=== PATIENT | male | born 1930 | race Caucasian/White ===

== ENCOUNTER 2017-01-06 08:53 | Observation (INO) | payer MEDICARE, OTHER ==
[~2017-01-06] VITALS: Ht 167.6 cm; Wt 91.0 kg
--- NOTE | ~2017-01-06 | ECH ---
Transthoracic Echocardiography Report (TTE) Demographics Patient Name JOHNY GUERRA Date of Study 01/06/2017 A Patient Number [id number] Visit Number [id number] Date of 1930 Room Number 413 Accession Number [id number] Gender Male Age 86 year(s) Referring Aung Perez MD Oncology Technician Marimar Gil [facility] Physician Physician Interpreting Susanna Tian Media Liaison Officer Physician Supervising Ordering Physician Nicole Perez MD, MD/[facility] Nurse Stress Email Campaign Specialist Conclusions Summary Technically fair exam. The estimated left ventricular ejection fraction is 50-55%. Diastolic assessment reveals Grade I diastolic dysfunction. The left atrium is moderately dilated by LA volume index measurement. Informed consent was obtained, bubble study was done, there is no evidence for a PFO or ASD. Aortic sclerosis without hemodynamically significant stenosis. There is trivial aortic regurgitation by color Doppler. Procedure Type of Study TTE procedure:Echo Complete SF. Procedure Date Date: 01/06/2017 Start: 03:44 PM Technical Quality: Fair due to poor acoustical window. Indications:Syncope, Hypertension and Cardiomegaly. Appropriate Use Criteria: 9 Height: 66 inches Weight: 187 pounds BSA: 1.94 m Rhythm: NSR HR: 60 bpm BP: 156/70 mmHg M-Mode/2D Measurements LV Diastolic Dimension: 5.04 cm LV Systolic Dimension: 4.22 cm LV Septum Diastolic: 1.04 cm LV PW Diastolic: 1.04 cm AO Root Dimension: 3.15 cm Cardiac Output: 2.97 l/min LA Dimension: 3.1 cm Cardiac Index: 1.53 l/min*m RV Diastolic Dimension: 3.57 cm LA volume index: 45 ml/m LVOT: 2.02 cm LVOT VTI: 15.47 cm RV Base: 3.4 cm LV Stroke volume: 49.55 ml RV Mid: 2 cm LV Stroke volume index: 25.54 ml/m TAPSE: 2.2 cm TDI-S': 12 cm/s Doppler Measurements AV Peak Velocity: 2 m/s MV Peak E-Wave: 0.45 m/s AV Peak Gradient: 16 mmHg MV Peak A-Wave: 0.66 m/s AV Mean Gradient: 10.57 mmHg MV E/A Ratio: 0.67 LVOT Peak Velocity: 0.64 m/s MV P1/2t: 123.4 msec AV Area (Continuity):0.89 cm MV Deceleration Time: 468.3 msec MV Area (PHT): 1.78 cm PV Peak Velocity: 0.77 m/s E' Septal Velocity: 0.1 m/s PV Peak Gradient: 2.39 mmHg E' Lateral Velocity: 0.06 m/s A' Lateral Velocity: 0.1 m/s RA Area: 14.45 cm Findings Left Ventricle Normal left ventricle size and function. Diastolic assessment reveals Grade I diastolic dysfunction. Right Ventricle Normal right ventricle structure and function. Left Atrium The left atrium is moderately dilated by LA volume index measurement. Informed consent was obtained, bubble study was done, there is no evidence for a PFO or ASD. Right Atrium Normal right atrial size. Mitral Valve Normal mitral valve structure and function. Trivial mitral regurgitation by color Doppler. Aortic Valve The aortic valve is moderately sclerotic. There is trivial aortic regurgitation by color Doppler. Tricuspid Valve Normal tricuspid valve structure and function. Trivial tricuspid regurgitation by color Doppler. Insufficient jet to calculate pulmonary pressures. Pulmonic Valve The pulmonic valve is not well visualized. Pericardial Effusion No evidence of pericardial effusion. Miscellaneous Visualized portions of the aortic root and ascending aorta appear normal in size. Pleural Effusion No evidence of pleural effusion. Contractility Score LV regional wall motion:(0-Non visualized 1-Normal 2-Hypokinesis 3-Akinesis 4-Dyskinesis 5-Aneurysm) Signature
[~2017-01-06 08:53] MED LIST: ALDACTONE DPS25 MG PO; ASPIRIN EC81 MG PO; AUGMENTIN XR1 GM PO; COUMADIN DPS3 MG PO; COUMADIN2.5 MG PO; DELTASONE DPS5 MG PO; DULERA 200/58.8 GM IH; FLOMAX DPS0.4 MG PO; GLUCAGON1 MG/ML SQ; GLUCOTROL DPS5 MG PO; GLUCOTROL5 MG PO; GLUTOSE 1537.5 GM PO; KENALOG 0.1% D454 GM TP; MAALOX DPS30 ML PO; MUCINEX DM ER1 EAC1 PO; NEURONTIN DPS300 MG PO; NEURONTIN300 MG PO; NORMAL SALINE FL5 ML IV; NOVOLIN R,100 UNITS/ SQ; OMEGA-3 DPS1000 MG PO; PEPCID DPS20 MG PO; RESTASIS1 EACH OU; ROCEPHIN DPS2 GM IV; SIMBRINZA 1%-0.28 ML OU; SURFAK DPS240 MG PO; SYNTHROID DP0.075 MG PO; TEARS NATURAL D15 ML OU; THERAPEUTIC MUL1 TAB PO; TYLENOL DPS325 MG PO; VESICARE5 MG PO; VITAMIN B-12500 MCG PO; VITAMIN B125000 MCG PO; XALATAN2.5 ML OU; ZOCOR DPS20 MG PO
--- NOTE | 2017-01-07 08:46 | ER ---
ADMIT: 01/06/2017 RM/LOC: 413 [facility] MR#: [id number] [address] [address] [place] [address] Emergency Room Report SEX: M AGE: 86 : 1930 DATE: 01/06/2017 This 86-year-old gentleman arrives from [facility]. He apparently was walking in the hallway when they found him down on the floor. They subsequently called the ambulance. Before the ambulance arrived, the fire crew arrived. They noted a pulse in the 30s and were unable to find a blood pressure. By the time the ambulance arrived, the patient was coming to, they did note he was incontinent of stool and urine. The said when they arrived he did have a pulse and his blood pressure was slowly coming up. He was transferred to the Emergency Department for further evaluation. The patient does suffer from dementia and is unable to provide accurate review of systems or history. He states he is feeling fine and would like to go back home. He has no complaints. PAST MEDICAL HISTORY: Hypertension, diabetes, coronary artery disease, and dementia. PHYSICAL EXAMINATION: GENERAL: Revealed an elderly gentleman, in no acute distress. He was somewhat obtunded, but easily arousable. There is no apparent trauma. HEENT: His pupils were equal and reactive. Pharynx was unremarkable. Airway was patent. NEURO: He was alert but not oriented to time, person or situation. He was slow to respond to commands. Cranial nerves II through XII are grossly intact. He would not cooperate with a cerebellar exam. Motor was significant for generalized weakness. RESPIRATORY: No infiltrates or wheezes were heard. CARDIOVASCULAR: Regular rate and rhythm. ABDOMEN: Soft. EXTREMITIES: Unremarkable. LABORATORY DATA: EKG showed no acute findings. INR was 2.5. ABG is 7.37, pCO2 of 44, pO2 of 71, and he is 94%. Hemoglobin was 12.4, platelets 109. Sodium 131, glucose 201. CT of the head showed no acute findings. The patient was being admitted with diagnosis of syncope. Flavio Clemente MD/ mg JOB #: [id number] CC: Dragan Horan MD, Attending Physician Dragan Horan MD, Family Physician
--- NOTE | 2017-01-09 08:05 | HP ---
ADMIT: 01/06/2017 RM/LOC: 413 [facility] MR#: [id number] [address] [address] [place] [address] History and Physical SEX: M AGE: 86 : 1930 DATE OF SERVICE: HISTORY OF PRESENT ILLNESS: Mr. Guerra is an 86-year-old white gentleman, patient of Dr. Dragan Horan. He currently resides with his at [facility]. He was doing his normal morning constitutional and was walking and had an apparent syncopal episode. He was found down on the ground, did take a short period of time before he aroused. Initially, the firemen came and they were unable to arouse him, and they could not feel a pulse, but by the time the horn player came, on their assessment there was a pulse and a blood pressure that was adequate. He was subsequently brought to the emergency room for further evaluation and care. PAST MEDICAL HISTORY: 1. Cellulitis to lower extremities. 2. Peripheral vascular disease. 3. Congestive heart failure. 4. Hypertension. 5. Hyponatremia. 6. COPD. 7. Hearing loss. 8. Mild memory loss. 9. Venous stasis insufficiency. SOCIAL HISTORY: He lives with his at [facility]. FAMILY HISTORY: Noncontributory. LABORATORY DATA: In the ER, his EKG showed sinus stiven with 59 beats per minute. White count was 5.6, hemoglobin 12.4, platelet count of 109,000. PH of 7.37, pCO2 of 44, PO2 of 71 on blood gases, blood sugar 193, INR 2.51. Sodium of 131, potassium 4.1, BUN and creatinine 12 and 0.8, magnesium 2.0. Troponin 0.020. CT of brain, mild chronic small vessel disease. Chest x-ray, cardiomegaly. PHYSICAL EXAMINATION: GENERAL: He is alert, appropriate. He says that he does get very tired and fatigued and gets wobbly towards the end of his walk and has been at risk of fall but he has never fallen. HEART: Regular rhythm. He does have a systolic murmur along the left sternal border. LUNGS: Clear, but diminished to auscultation. ABDOMEN: Soft. EXTREMITIES: Venous stasis changes. ASSESSMENT AND PLAN: Admission of an elderly white gentleman with; 1. Syncopal episode. 2. History of cellulitis to lower extremities. 3. History of heart failure. 4. Hypertension. ADMIT: 01/06/2017 RM/LOC: 413 [facility] MR#: [id number] [address] [place] [id number] [place] [address] History and Physical SEX: M AGE: 86 : 1930 5. Hyponatremia. 6. Chronic obstructive pulmonary disease. 7. Hearing loss. 8. Mild memory loss. At this time we will admit to [facility]. Medications were reviewed. We will hold his Lasix at this time. Continue all other medications. He is chronically anticoagulated. We will do an echocardiogram with bubble study, ultrasound of carotids. We will fluid restrict for his history of hyponatremia. In addition, resume medications as appropriate. Get him up to see how he does. Orthostatic blood pressures etc. When we feel is clinically stable, has had no evidence of arrhythmias, and his workup is negative, he may return back to [facility]. Cheryle Rivera MD/ mg JOB #: [id number] CC: Dragan Horan, Attending Physician Dragan Horan, Family Physician
[2017-01-11] MEDS ORDERED: LASIX DPS20 MG PO (13:51)
[2017-01-11] MEDS ORDERED: MUCINEX DM ER1 EAC1 PO (13:51)
[2017-01-11] MEDS ORDERED: LOPRESSOR DPS50 MG PO (13:52)
[2017-01-11] MEDS ORDERED: COLACE-DPS100 MG PO (13:53)
--- NOTE | 2017-03-27 11:01 | DS ---
ADMIT: 01/06/2017 RM/LOC: 413 [facility] MR#: [id number] [address] [address] [place] [address] Discharge Summary SEX: M AGE: 86 : 1930 ADMISSION DATE: 01/06/2017 DISCHARGE DATE: 01/10/2017 DISMISSAL DIAGNOSES: 1. Syncope, etiology unknown. 2. Elevated CK secondary to fall without myocardial infarction. 3. Chronic obstructive pulmonary disease. 4. Mild congestive failure. 5. Nighttime hypoxemia. 6. Supraventricular tachycardia. 7. Prior transient ischemic attack. 8. Emphysema. 9. Type 2 diabetes. CLINICAL HISTORY: Johny was admitted to the hospital with the onset of a syncopal episode while walking. His history was fairly clear. He felt that he was going to get lightheaded and passed out. Tried to cushion his fall which he did to a large degree. Bystanders felt normal pulse and respirations during a short period of syncope and loss of consciousness. Essentially normal diagnostic studies included a CT scan of the head, carotid ultrasound, echocardiogram, EKG, 48-hour Holter monitor. Abnormal studies included minimal cardiomegaly, slight elevation in his CK, but negative MB and normal CBC, complete metabolic panel, arterial blood gases, random cortisol. Outpatient studies confirmed nighttime hypoxemia for oxygen qualification. HOSPITAL COURSE: Johny was brought in, seen and evaluated, watched on telemetry where he had short bursts of SVT with heart rates in the 130 to 135 range. This was confirmed by outpatient monitoring, but his bursts were only 6- 8 beats, showing a good response to his metoprolol. He was ultimately dismissed with followup studies and appointments to continue on: 1. Aspirin 81 mg. 2. Coumadin 2.5 mg daily. 3. Flomax 0.4 mg daily. 4. Glucotrol XL 5 mg daily. 5. Lopressor 25 p.o. b.i.d. 6. Mucinex 600 mg b.i.d. ADMIT: 01/06/2017 RM/LOC: 413 [facility] MR#: [id number] [address] [address] [place] [address] Discharge Summary SEX: M AGE: 86 : 1930 7. Neurontin 300 mg b.i.d. 8. Pepcid 20 p.o. b.i.d. 9. Synthroid 0.075 daily. 10.Vitamin B 500 mcg orally. 11.Dulera 200/5.8 two puffs b.i.d. 12.Azopt one drop both eyes t.i.d. 13.Brimonidine tartrate one drop both eyes t.i.d. 14.Restasis 0.4 both eyes b.i.d. one drop. 15.Natural tears p.r.n. 16.Xalatan 1 drop both eyes at bedtime. 17.Kenalog cream on a p.r.n. basis. Physical Therapy and Occupational Therapy assisted his assessments. Dragan Horan MD/ josephl JOB #: [id number] CC: Dragan Horan MD, Attending Physician Dragan Horan MD, Family Physician
== END 2017-01-10 15:11 | disposition home or self-care (01) ==
LOC: ER 08:53 → 4PCU 10:20
PROVIDERS: ADMIT Internal Medicine
DX: R55 Syncope and collapse (principal); I11.0 Hypertensive heart disease with heart failure; I50.9 Heart failure, unspecified; E87.1 Hypo-osmolality and hyponatremia; H91.90 Unspecified hearing loss, unspecified ear; R41.3 Other amnesia; I25.10 Atherosclerotic heart disease of native coronary artery without angina pectoris; F03.90 Unspecified dementia, unspecified severity, without behavioral disturbance, psychotic disturbance, mood disturbance, and anxiety; Z86.73 Personal history of transient ischemic attack (TIA), and cerebral infarction without residual deficits; Z79.82 Long term (current) use of aspirin; Z79.899 Other long term (current) drug therapy; Z79.01 Long term (current) use of anticoagulants; Z79.52 Long term (current) use of systemic steroids